=== PATIENT | male | born 1950 | race Hispanic/Latino ===

== ENCOUNTER → 2018-10-18 | Outpatient (CLI) | payer MEDICARE ==
[~2018-10-18] MED LIST: AEC81 PO; ATOR40TA71 PO; CLOP75TA14 PO; LISI-613 PO; METF750T PO; METO50TA18 PO
== END | disposition home or self-care (01) ==
LOC: SHCH 07:49
PROVIDERS: ATTEND Internal Medicine Cardiovascular Disease
DX: R94.31 Abnormal electrocardiogram [ECG] [EKG] (principal)
CPT/HCPCS: 93306

== ENCOUNTER → 2018-10-20 | Outpatient (CLI) | payer MEDICARE ==
[~2018-10-20] MED LIST changes: +REGADENOSON 0.4 MG/5 ML PF SYG IVP SCH
== END | disposition home or self-care (01) ==
LOC: SHCH 07:42
PROVIDERS: ATTEND Internal Medicine Cardiovascular Disease
DX: R94.31 Abnormal electrocardiogram [ECG] [EKG] (principal); R07.89 Other chest pain
CPT/HCPCS: 78452; 93017; 96374; A9500 ×2; J2785 ×2

== ENCOUNTER 2018-10-28 16:08 | Observation (INO) | payer MEDICARE ==
[~2018-10-28] VITALS: Ht 165.1 cm; Wt 90.3 kg
[~2018-10-28 16:08] MED LIST changes: -REGADENOSON 0.4 MG/5 ML PF SYG IVP SCH
[2018-10-28 16:37] LABS: BASOPHILS % (AUTO) 1.1 % (0.0-5.0); LYMPHOCYTES % (AUTO) 20.1 % (21.0-51.0); MEAN CORPUSCULAR HEMOGLOBIN 30.3 pg (27.0-33.0); MEAN CORPUSCULAR HGB CONC 33.2 g/dL (32.0-36.0); MEAN CORPUSCULAR VOLUME 91.2 fL (79-99); MONOCYTES % (AUTO) 9.4 % (3.0-13.0); NEUTROPHILS % (AUTO) 66.4 % (40.0-77.0); NUCLEATED RED BLOOD CELLS 0.1 % (0.0-0.19); PLATELET COUNT (AUTO) 222 K/uL (130-400); RED BLOOD CELL COUNT(AUTO) 5.04 MIL/uL (4.50-6.20); RED CELL DISTRIBUTION WIDTH 13.7 % (11.0-15.5); WHITE BLOOD COUNT (AUTO) 6.7 K/uL (4.8-10.8)
[2018-10-28 16:48] LABS: CREATININE 1.5 mg/dL (0.5-1.5); POTASSIUM 3.6 mmol/L (3.5-5.1)
[2018-10-28 16:54] LABS: ALBUMIN 3.9 g/dL (3.5-5.0); BILIRUBIN,TOTAL 0.5 mg/dL (0.2-1.0); TOTAL PROTEIN, SERUM 7.3 g/dL (6.0-8.3)
[2018-10-28 16:59] LABS: CREATINE KINASE, TOTAL 164 U/L (21-232); MYOGLOBIN 53 ng/mL (10-92); TROPONIN I < 0.04 ng/mL (0.00-0.06)
[2018-10-28 17:28] LABS: APPEARANCE,URINE Clear (CLEAR); BILIRUBIN,URINE Negative (NEGATIVE); COLOR,URINE Yellow (YELLOW); GLUCOSE, URINE (UA) Negative (NEGATIVE); KETONES,URINE Negative (NEGATIVE); LEUKOCYTE ESTERASE ,URINE Negative (NEGATIVE); NITRATE,URINE Negative (NEGATIVE); OCCULT BLOOD,URINE Trace (NEGATIVE); PH,URINE 7.5 (5.0-8.0); PROTEIN,URINE Negative (NEGATIVE); UROBILINOGEN,URINE 0.2 mg/dL (0.2-1.0)
[2018-10-28 18:02] LABS: BACTERIA,URINE Rare /HPF (None Seen); RBC,URINE 0-1 /HPF (0-1); SQUAMOUS EPITHELIAL CELL,UR 0-2 /HPF (0-2); WBC,URINE None Seen /HPF (0-1)
[2018-10-28] MEDS ORDERED: ASPIRIN 325 MG TABLET ONE (18:05)
[2018-10-28] MEDS ORDERED: NITROGLYCERIN 0.4 MG SL TAB SL ONE (18:05)
--- NOTE | 2018-10-28 20:00 | NUR ---
PM Assessment Bedside report received from Jabier SIMMS. Plan of care discussed with patient. Patient currently in no apparent distress, resting comfortably. Physical assessment within normal limits. will continue to monitor. Addendum: 10/28/18 at 2031 by ALMA DELIA CLEMENS RN incorrect patient charted. note.
--- NOTE | 2018-10-28 21:20 | NUR ---
Report received from ER nurse MENDEZ Duarte report given. Patient arrived to unit at 2136 in no apparent distress. currently chest pain free, in no apparent distress. plan of care discussed with nurse transferring patient and patient. will continue to monitor patient closely. As per Report patient in Observation. No Cardiology consult as per report.
--- NOTE | 2018-10-28 21:50 | NUR ---
Dr. Mcgarry called Dr. Mcgarry called about admission and updated on patient. Orders received by telephone read back and entered into system
[2018-10-28 22:02] VITALS: BP 156/98
[2018-10-28 23:02] LABS: TROPONIN I 0.05 ng/mL (0.00-0.06)
[2018-10-29] VITALS: BP 160/85
[2018-10-29 04:00] VITALS: BP 137/76
[2018-10-29 05:44] LABS: TROPONIN I 0.07 ng/mL (0.00-0.06)
--- NOTE | 2018-10-29 07:00 | NUR ---
ENCOUNTERED PATIENT ON BED WITH NO C/O CHEST PAIN NOR SHORTNESS OF BREATH. HE IS ON 2L O2 PER NASAL CANNULA. DR. MARC HAS NOT BEEN BY. NO ORDERS FOR CARDIO CONSULT. PATIENT'S WILL BRING HIS HOME MEDICATIONS FOR VERIFICATION. NO PENDING TEST.
[2018-10-29 07:21] VITALS: BP 152/91
--- NOTE | 2018-10-29 07:30 | NUR ---
FULL SYSTEMIC ASSESSMENT DONE. CALL LIGHT AT BEDSIDE. INSTRUCTED TO CALL FOR ASSISTANCE AND PATIENT VERBALIZED UNDERSTANDING.
--- NOTE | 2018-10-29 07:44 | NUR ---
MD UPDATE Spoke to by phone regarding pt's status. MD aware of CE results. Per MD, will anticipate pt discharge today after round. Pt updated by primary nurse. No additional studies or consults ordered by MD.
--- NOTE | 2018-10-29 07:50 | NUR ---
TELE UPDATE: SINUS RHYTHM 98
[2018-10-29] MEDS ORDERED: PNEUMOCOCCAL VACCINE POLYVALENT 0.5 ML/VIAL [PPV] IM ONE (09:00)
[2018-10-29 11:17] VITALS: BP 133/79
[2018-10-29 16:12] VITALS: BP 126/77
--- NOTE | 2018-10-29 18:29 | NUR ---
DISCHARGE INSTRUCTIONS/INFORMATION GIVEN TO PATIENT, AND DAUGHTER. PATIENT WILL HAVE TO F/U WITH DR. PLATT IN 1-2 WEEKS FOR A POSSIBLE OUTPATIENT STRESS TEST AND WITH HIS PCP DR. TINSLEY IN 1 WEEK FOR TRANSITION CARE. TEACH BACK METHOD USED TO EDUCATE PATIENT ON MEDICATIONS, CHEST PAIN, S/S TO WATCH FOR, WHEN TO CALL THE DOCTOR, DIET, AND F/U APPOINTMENTS. ALL VERBALIZED UNDERSTANDING. PIV REMOVED. TIP INTACT. TELE REMOVED AND RETURNED. ALL BELONGINGS WERE PACKED AND TAKEN HOME. PATIENT WAS WHEELED SAFELY TO HIS PRIVATE VEHICLE BY ASHLEY BOYLE.
[2018-10-29] MEDS ORDERED: ATORVASTATIN CALCIUM 40 MG TABLET PO SCH (21:00)
[2018-10-29] MEDS ORDERED: LISINOPRIL 20 MG TABLET PO SCH (21:00)
[2018-10-29] MEDS ORDERED: METOPROLOL TARTRATE 50 MG TAB PO SCH (21:00)
[2018-10-30] MEDS ORDERED: ASPIRIN 81 MG EC TAB PO SCH (09:00)
[2018-10-30] MEDS ORDERED: CLOPIDOGREL BISULFATE 75 MG TAB PO SCH (09:00)
== END 2018-10-29 18:35 | disposition home or self-care (01) ==
LOC: EDH 16:08 → EDHIP 17:59 → 2AH 21:42
PROVIDERS: ADMIT Internal Medicine; ATTEND Internal Medicine
DX: R07.89 Other chest pain (principal); I25.10 Atherosclerotic heart disease of native coronary artery without angina pectoris
CPT/HCPCS: 36415 ×2; 71045; 80053; 81001; 82550 ×3; 83874 ×3; 84484 ×3; 85025; 93005 ×3; 99291; G0378 ×25

== ENCOUNTER 2020-07-24 16:36 | Inpatient (IN) | payer MEDICARE ==
[~2020-07-24] VITALS: Ht 160 cm; Wt 94.5 kg
[~2020-07-24 16:36] MED LIST changes: -METF750T PO
[2020-07-24 16:56] LABS: BASOPHILS % (AUTO) 0.9 % (0.0-5.0); EOSINOPHILS % (AUTO) 1.8 % (0.0-8.0); HEMATOCRIT 44.5 % (42-54); LYMPHOCYTES % (AUTO) 23.8 % (21.0-51.0); MEAN CORPUSCULAR HEMOGLOBIN 30.9 pg (27.0-33.0); MEAN CORPUSCULAR HGB CONC 34.4 g/dL (32.0-36.0); MEAN CORPUSCULAR VOLUME 89.9 fL (79-99); MONOCYTES % (AUTO) 7.6 % (3.0-13.0); NEUTROPHILS % (AUTO) 65.7 % (40.0-77.0); PLATELET COUNT (AUTO) 246 K/uL (130-400); RED BLOOD CELL COUNT(AUTO) 4.95 MIL/uL (4.50-6.20); RED CELL DISTRIBUTION WIDTH 13.2 % (11.0-15.5); WHITE BLOOD COUNT (AUTO) 8.2 K/uL (4.8-10.8)
[2020-07-24 17:07] LABS: CREATININE 1.4 mg/dL (0.5-1.5); POTASSIUM 3.2 mmol/L (3.5-5.1)
[2020-07-24 17:14] LABS: ALBUMIN 4.3 g/dL (3.5-5.0); BILIRUBIN,TOTAL 0.5 mg/dL (0.2-1.0); INR 0.95 (0.85-1.15); PARTIAL THROMBOPLASTIN TIME 24.8 SEC (26.3-35.5); PROTHROMBIN TIME 10.3 SEC (9.6-11.6); TOTAL PROTEIN, SERUM 7.6 g/dL (6.0-8.3)
[2020-07-24] MEDS ORDERED: POTASSIUM BICARB/CIT AC 25 MEQ TABLET.EFF ONE (18:32)
[2020-07-24] MEDS ORDERED: SODIUM CHLORIDE 0.9% 1000ML 0 ML IV ONE (18:35)
[2020-07-24] MEDS ORDERED: NITROGLYCERIN 1GM/1 INCH PACKET TD ONE (21:32)
[2020-07-24] MEDS ORDERED: ATORVASTATIN CALCIUM 40 MG TABLET ONE (21:53)
[2020-07-24] MEDS ORDERED: METOPROLOL TARTRATE 25 MG TAB ONE (21:54)
[2020-07-24] MEDS ORDERED: ENOXAPARIN SODIUM 40 MG/0.4 ML SYRINGE SQ ONE (21:54)
[2020-07-24] MEDS ORDERED: MORPHINE SULFATE 2 MG/ML 1ML SYG IVP PRN (22:00)
[2020-07-24] MEDS ORDERED: ONDANSETRON HCL 4 MG/2 ML VIAL IVP PRN (22:00)
[2020-07-24] MEDS ORDERED: ACETAMINOPHEN 325 MG TAB PO PRN (22:00)
[2020-07-24 22:50] VITALS: BP 146/67
[2020-07-25 00:23] VITALS: BP 124/72
[2020-07-25 03:57] VITALS: BP 127/77
[2020-07-25 04:14] LABS: HEMATOCRIT 46.6 % (42-54); MEAN CORPUSCULAR HEMOGLOBIN 30.3 pg (27.0-33.0); MEAN CORPUSCULAR HGB CONC 33.5 g/dL (32.0-36.0); MEAN CORPUSCULAR VOLUME 90.5 fL (79-99); RED BLOOD CELL COUNT(AUTO) 5.15 MIL/uL (4.50-6.20); RED CELL DISTRIBUTION WIDTH 13.3 % (11.0-15.5); WHITE BLOOD COUNT (AUTO) 7.9 K/uL (4.8-10.8)
[2020-07-25 04:15] LABS: HEMOGLOBIN A1C 6.2 % (4.0-6.0)
[2020-07-25 04:28] LABS: INR 0.97 (0.85-1.15); PARTIAL THROMBOPLASTIN TIME 27.5 SEC (26.3-35.5); PROTHROMBIN TIME 10.5 SEC (9.6-11.6)
[2020-07-25 04:32] LABS: CREATININE 1.2 mg/dL (0.5-1.5); MAGNESIUM 2.2 mg/dL (1.80-2.40); POTASSIUM 4.4 mmol/L (3.5-5.1)
[2020-07-25] MEDS ORDERED: HEPARIN 25000 UNITS/250 ML D5W 250 ML IV SCH (06:30)
[2020-07-25] MEDS ORDERED: METOPROLOL TARTRATE 25 MG TAB ONE (06:35)
[2020-07-25] MEDS ORDERED: ASPIRIN 81 MG EC TAB ONE (06:37)
[2020-07-25] MEDS: METOPROLOL TARTRATE 25 MG TAB PO SCH ×2 (06:54→21:51)
[2020-07-25] MEDS: ATORVASTATIN CALCIUM 40 MG TABLET PO SCH (06:54)
[2020-07-25] MEDS: SODIUM CHLORIDE 0.9% 1000ML 1,000 ML IV SCH ×2 (06:54→15:55)
[2020-07-25] MEDS: ASPIRIN 81MG TAB.CHEW PO SCH (06:54)
[2020-07-25] MEDS ORDERED: INSULIN R PO SS1 SQ SCH (07:30)
[2020-07-25] MEDS: ENOXAPARIN SODIUM 40 MG/0.4 ML SYRINGE SQ SCH (08:01)
[2020-07-25] MEDS ORDERED: IOHEXOL 350 MG/ML 100ML INFUS..BTL IV ONE (08:02)
[2020-07-25] MEDS ORDERED: NITROGLYCERIN 2 MG/VIAL VIAL IV ONE (08:02)
[2020-07-25] MEDS ORDERED: LIDOCAINE HCL 2% 20ML ONE (08:03)
[2020-07-25] MEDS ORDERED: IOHEXOL-350 50ML VIAL IV ONE (08:03)
[2020-07-25] MEDS ORDERED: HEPARIN SODIUM 1000UNIT/ML 10ML VIAL ONE (08:17)
[2020-07-25] MEDS ORDERED: NICARDIPINE HCL 25 MG/10 ML ML IV ONE (08:17)
[2020-07-25] MEDS ORDERED: MIDAZOLAM HCL 1 MG/ML 2ML VIAL ONE (08:37)
[2020-07-25] MEDS ORDERED: FENTANYL CITRATE PF 50 MCG/1 ML 2ML VIAL ONE (08:38)
[2020-07-25] MEDS ORDERED: IOHEXOL-350 75 ML VIAL IV ONE (08:52)
[2020-07-25] MEDS ORDERED: EPTIFIBATIDE 2 MG/ML 10 ML VIAL IVP ONE ×2 (08:58→09:16)
[2020-07-25] MEDS ORDERED: TICAGRELOR 90 MG TABLET ONE (08:58)
[2020-07-25] MEDS ORDERED: ASPIRIN 81MG TAB.CHEW PO SCH (09:00)
[2020-07-25] MEDS ORDERED: METOPROLOL TARTRATE 25 MG TAB PO SCH (09:00)
[2020-07-25] MEDS ORDERED: DEXTROSE 50%-WATER 50 ML DISP.SYRIN IV PRN (09:45)
[2020-07-25] MEDS ORDERED: GLUCAGON 1MG KIT 1 MG ML IM PRN (09:45)
--- NOTE | 2020-07-25 10:00 | NUR ---
ARRIVAL TO FLOOR FROM INSPECTOR OF WEIGHTS AND MEASURES RECEIVED PATIENT TO ROOM 404, PT IS AAOX3 DENIES CP DENIES SOB DENIES NV. NOTED RIGHT WRIST TR BAND IN PLACE, INFLATED. RIGHT WRIST CATH ACCESS SITE IS VISIBLE AND IS NOT BLEEDING, HEMOSTASIS ACHIEVED WITH TR BAND IN PLACE. ORDERS IN PLACE FOR AIR REMOVAL. PT IS ON IV FLUIDS AND IS ON AN INTEGRILIN GTT ORDERED. TELEMETRY PLACED ON PATIENT. BEDREST IN PROGRESS AND PATIENT VERBALIZES UNDERSTANDING ON COMPLIANCE. AGREES TO NOT USE RIGHT HAND/ARM FOR THE TIME BEING. CALL LIGHT WITHIN REACH.
[2020-07-25] MEDS: EPTIFIBATIDE 75MG/100ML BOTTLE 100 ML IV SCH ×2 (10:41→21:51)
--- NOTE | 2020-07-25 11:00 | NUR ---
RIGHT WRIST REMAINS WITH TR BAND HEMOSTASIS REMAINS TO SITE, INTEGRILIN INFUSING ORDERED.
[2020-07-25] MEDS: INSULIN HUMULIN R 100 UNIT/ML 3ML SQ SCH ×3 (11:30→21:00)
--- NOTE | 2020-07-25 11:45 | NUR ---
2D ECHO AT BEDSIDE
--- NOTE | 2020-07-25 14:00 | NUR ---
TR BAND AIR REMOVAL EVERY 15 MINUTES 2ML AIR REMOVED EVERY 15 MINS SINCE 12PM. TOLERATED WELL. HEMOSTASIS REMAINS, LIGHT DRESSING WITH TEGADERM APPLIED OVER RIGHT RADIAL CATH SITE. INSTRUCTED TO NOT USE RIGHT HAND FOR ANY LIFTING OR GRIPPING THINS TOO TIGHTLY. VERBALIZED UNDERSTANDING, CALL LIGHT WITHIN REACH.
--- NOTE | 2020-07-25 15:00 | NUR ---
DRESSING TO RIGHT WRIST REMAINS CLEAN DRY AND INTACT DENIES PAIN TO SITE. CALL LIGHT WITHIN REACH.
--- NOTE | 2020-07-25 16:00 | NUR ---
STATUS PT IS AAOX3 DENIES CP DENIES SOB. NO COMPLAINTS. HR VIA TELE SR 70S.
--- NOTE | 2020-07-25 16:26 | NUR ---
LILIBETH NOTE/IA UNABLE TO MEET WITH PATIENT, NEXT OF KIN CALLED, JOSE DE LUNA. PER DAUGHTER, PATIENT IS INDEPENDENT WITH ADLS, LIVES WITH SPOUSE, NO USE OF DME OR PROVIDERS AND FEELS SAFE FOR PATIENT TO RETURN HOME ONCE DISCHARGED FROM HOSPITAL. Addendum: 07/25/20 at 1627 by IRISH SHETH RN CM Amended: Links added.
[2020-07-25 16:38] VITALS: BP 147/78
--- NOTE | 2020-07-25 19:56 | NUR ---
stone splitter MD for was paged and informed that patient is on Integrillin drip and will also have Brilinta scheduled for tonight,he said to hold the dose of Brilinta for tonight only.
[2020-07-25] MEDS: TICAGRELOR 90 MG TABLET PO SCH (20:00)
[2020-07-25 20:04] VITALS: BP 132/98
[2020-07-25] MEDS ORDERED: ATORVASTATIN CALCIUM 40 MG TABLET PO SCH (21:00)
[2020-07-26 00:13] VITALS: BP 149/97
--- NOTE | 2020-07-26 04:00 | NUR ---
Integrillin drip turned off at this time.
[2020-07-26 04:26] VITALS: BP 152/90
[2020-07-26 04:30] LABS: HEMATOCRIT 44.9 % (42-54); MEAN CORPUSCULAR HEMOGLOBIN 30.2 pg (27.0-33.0); MEAN CORPUSCULAR HGB CONC 33.2 g/dL (32.0-36.0); MEAN CORPUSCULAR VOLUME 91.1 fL (79-99); RED BLOOD CELL COUNT(AUTO) 4.93 MIL/uL (4.50-6.20); RED CELL DISTRIBUTION WIDTH 13.4 % (11.0-15.5); WHITE BLOOD COUNT (AUTO) 8.2 K/uL (4.8-10.8)
[2020-07-26 04:47] LABS: CREATININE 1.1 mg/dL (0.5-1.5); MAGNESIUM 2.3 mg/dL (1.80-2.40); POTASSIUM 3.7 mmol/L (3.5-5.1)
[2020-07-26] MEDS: INSULIN HUMULIN R 100 UNIT/ML 3ML SQ SCH ×4 (06:06→20:40)
[2020-07-26] MEDS: ATORVASTATIN CALCIUM 40 MG TABLET PO SCH (08:18)
[2020-07-26] MEDS: TICAGRELOR 90 MG TABLET PO SCH (08:18)
[2020-07-26] MEDS: ASPIRIN 81MG TAB.CHEW PO SCH (08:19)
[2020-07-26] MEDS: METOPROLOL TARTRATE 25 MG TAB PO SCH ×2 (08:19→20:42)
[2020-07-26] MEDS: ENOXAPARIN SODIUM 40 MG/0.4 ML SYRINGE SQ SCH ×2 (08:20→09:23)
[2020-07-26 08:29] VITALS: BP 120/78
[2020-07-26] MEDS ORDERED: ENOXAPARIN SODIUM 1 MG/KG SQ SCH (10:00)
[2020-07-26] MEDS: ENOXAPARIN SODIUM 100 MG/1 ML SQ SCH ×2 (10:12→20:43)
--- NOTE | 2020-07-26 10:23 | NUR ---
CALL RECEIVED FROM PT.'S SPOUSE, LUKAS DE LUNA. UPDATED ON PT.'S STATUS AND INFORMATION PROVIDED WELL QUESTIONS ANSWERED, WITH PT.'S APPROVAL; SPOUSE VERBALIZED UNDERSTANDING.
[2020-07-26 11:45] VITALS: BP 123/83
--- NOTE | 2020-07-26 16:32 | NUR ---
CM NOTE PLEASE SEE NURSING COMMUNICATOR ORDER BY DR. CARNEY ON 07/26/2020 AT 1234 IN REGARDS TO CASE MANAGEMENT PROMPT ON MEDICAL COVERAGE FOR [employer] AND [employer].
[2020-07-26 16:51] VITALS: BP 145/89
[2020-07-26 20:00] VITALS: BP 143/90
[2020-07-27] VITALS: BP 164/90
[2020-07-27 04:00] VITALS: BP 145/84
[2020-07-27] MEDS: INSULIN HUMULIN R 100 UNIT/ML 3ML SQ SCH ×2 (05:27→11:19)
[2020-07-27 08:00] VITALS: BP 148/86
--- NOTE | 2020-07-27 08:00 | NUR ---
AM ASSESSMENT PT SITTING IN BED, WATCHING TV. A/O X 3. NO SOB. NO DISTRESS NOTED. DENIES CHEST PAIN OR DISCOMFORT. DENIES PALPITATIONS. DENIES PUNCTURE SITE PAIN. TELE: SR. RT WRIST PUNCTURE SITE DSG DRY & INTACT. NO BLEEDING, NO HEMATOMA NOTED. (+) CAPILLARY REFILL. STRONG RT RADIAL PULSE. DENIES N/V AND/OR DIARRHEA. UP AD SRAVANI. INSTRUCTED TO CALL FOR ASSISTANCE. CALL RIOS W/IN REACH.
[2020-07-27] MEDS: ENOXAPARIN SODIUM 100 MG/1 ML SQ SCH ×2 (08:06→11:19)
[2020-07-27] MEDS: ASPIRIN 81MG TAB.CHEW PO SCH (08:06)
[2020-07-27] MEDS: ATORVASTATIN CALCIUM 40 MG TABLET PO SCH (08:06)
[2020-07-27] MEDS: METOPROLOL TARTRATE 25 MG TAB PO SCH (08:06)
[2020-07-27] MEDS ORDERED: CLOPIDOGREL BISULFATE 300 MG TAB PO SCH (09:00)
[2020-07-27 11:00] VITALS: BP 134/90
--- NOTE | 2020-07-27 12:40 | NUR ---
DISCHARGE TELE ROSALIE REMOVED @ THIS TIME.
[2020-07-27] MEDS ORDERED: APIXABAN 2.5 MG TABLET PO ONE (12:51)
[2020-07-27] MEDS ORDERED: RIVAROXABAN 2.5 MG TABLET PO SCH ×2 (13:15→21:00)
--- NOTE | 2020-07-27 13:50 | NUR ---
DISCHARGE PT'S SPOUSE HERE TO TAKE PT HOME. PT TAKEN TO PRIVATE VEHICLE VIA WC BY Ilene ESPINOZA RN. NO DISTRESS NOTED.
== END 2020-07-27 13:50 | disposition home or self-care (01) | DRG 282 ==
LOC: EDH 16:36 → EDHIP 21:34 → 4AH 22:56
PROVIDERS: ADMIT Internal Medicine Infectious Disease; ATTEND Internal Medicine Infectious Disease
PROC: 4A023N7 Measurement of Cardiac Sampling and Pressure, Left Heart, Percutaneous Approach (ICD-10-PCS; principal; 2020-07-25)
PROC: B2111ZZ Fluoroscopy of Multiple Coronary Arteries using Low Osmolar Contrast (ICD-10-PCS; 2020-07-25)
DX: T82.855A Stenosis of coronary artery stent, initial encounter (principal); I21.4 Non-ST elevation (NSTEMI) myocardial infarction; I10 Essential (primary) hypertension; E78.5 Hyperlipidemia, unspecified; I25.10 Atherosclerotic heart disease of native coronary artery without angina pectoris; E11.9 Type 2 diabetes mellitus without complications; E87.6 Hypokalemia; E66.01 Morbid (severe) obesity due to excess calories; Z68.36 Body mass index [BMI] 36.0-36.9, adult; Z79.899 Other long term (current) drug therapy; I25.2 Old myocardial infarction; Z83.3 Family history of diabetes mellitus; Z82.49 Family history of ischemic heart disease and other diseases of the circulatory system; Y83.8 Other surgical procedures as the cause of abnormal reaction of the patient, or of later complication, without mention of misadventure at the time of the procedure; Y92.89 Other specified places as the place of occurrence of the external cause
CPT/HCPCS: 36415; 71045; 80048; 80053; 82550; 82948; 83036; 83735; 84484; 85025; 85027; 85610; 85730; 93005; 93306; 93356; 93454; 99156; 99157; C1769; G0378; J1327; J1644; J1650; J2250; J3010; J3490; J7030; Q9967

== ENCOUNTER → 2020-08-27 | Outpatient (CLI) | payer MEDICARE | END | disposition home or self-care (01) | LOC: SHCH 07:59 | PROVIDERS: ATTEND Internal Medicine | DX: I22.2 Subsequent non-ST elevation (NSTEMI) myocardial infarction (principal) | CPT/HCPCS: 93306; 93356 ==

== ENCOUNTER 2020-09-18 15:56 | Inpatient (IN) | payer MEDICARE ==
[~2020-09-18] VITALS: Ht 167.6 cm; Wt 85.3 kg
[2020-09-18] MEDS ORDERED: ASPIRIN 325 MG TABLET ONE (16:07)
[2020-09-18] MEDS ORDERED: NITROGLYCERIN 0.4 MG SL TAB SL ONE (16:07)
[2020-09-18] MEDS ORDERED: NITROGLYCERIN 1GM/1 INCH PACKET TD ONE (16:07)
[2020-09-18 16:12] LABS: BASOPHILS % (AUTO) 0.9 % (0.0-5.0); EOSINOPHILS % (AUTO) 2.2 % (0.0-8.0); HEMATOCRIT 45.5 % (42-54); LYMPHOCYTES % (AUTO) 38.4 % (21.0-51.0); MEAN CORPUSCULAR HEMOGLOBIN 30.6 pg (27.0-33.0); MEAN CORPUSCULAR HGB CONC 33.8 g/dL (32.0-36.0); MEAN CORPUSCULAR VOLUME 90.5 fL (79-99); MONOCYTES % (AUTO) 9.3 % (3.0-13.0); PLATELET COUNT (AUTO) 309 K/uL (130-400); RED BLOOD CELL COUNT(AUTO) 5.03 MIL/uL (4.50-6.20); RED CELL DISTRIBUTION WIDTH 13.2 % (11.0-15.5); WHITE BLOOD COUNT (AUTO) 9.4 K/uL (4.8-10.8)
[2020-09-18] MEDS ORDERED: ONDANSETRON HCL 4 MG/2 ML VIAL ONE (16:17)
[2020-09-18] MEDS ORDERED: MORPHINE SULFATE 4 MG/1ML SYG ONE (16:17)
[2020-09-18 16:26] LABS: INR 0.97 (0.85-1.15); PARTIAL THROMBOPLASTIN TIME 24.3 SEC (26.3-35.5); PROTHROMBIN TIME 10.5 SEC (9.6-11.6)
[2020-09-18] MEDS ORDERED: PRASUGREL HCL 10 MG TABLET ONE (16:28)
[2020-09-18] MEDS ORDERED: IOHEXOL-350 50ML VIAL IV ONE (16:30)
[2020-09-18] MEDS ORDERED: ATROPINE SULFATE 0.1 MG/ML 10 ML SYG IVP ONE (16:30)
[2020-09-18] MEDS ORDERED: BIVALIRUDIN 250 MG/VIAL IV ONE (16:30)
[2020-09-18] MEDS ORDERED: HEPARIN SODIUM 1000UNIT/ML 10ML VIAL ONE (16:30)
[2020-09-18] MEDS ORDERED: IOHEXOL 350 MG/ML 100ML INFUS..BTL IV ONE (16:30)
[2020-09-18] MEDS ORDERED: NITROGLYCERIN 2 MG/VIAL VIAL IV ONE (16:30)
[2020-09-18] MEDS ORDERED: MIDAZOLAM HCL 1 MG/ML 2ML VIAL ONE (16:30)
[2020-09-18 16:31] LABS: CREATININE 1.3 mg/dL (0.5-1.5); POTASSIUM 3.5 mmol/L (3.5-5.1)
[2020-09-18] MEDS ORDERED: DOPAMINE HCL 400 MG/D5%-WATER 0 ML IV ONE (16:31)
[2020-09-18] MEDS ORDERED: LIDOCAINE HCL 2% 20ML ONE (16:31)
[2020-09-18 16:35] LABS: ALBUMIN 4.2 g/dL (3.5-5.0); BILIRUBIN,TOTAL 0.6 mg/dL (0.2-1.0); TOTAL PROTEIN, SERUM 7.7 g/dL (6.0-8.3)
[2020-09-18] MEDS ORDERED: LIDOCAINE PF 2% 5ML ABBOJECT ONE (17:03)
[2020-09-18] MEDS ORDERED: EPTIFIBATIDE 2 MG/ML 10 ML VIAL IVP ONE ×2 (17:08→17:14)
[2020-09-18] MEDS ORDERED: FENTANYL CITRATE PF 50 MCG/1 ML 2ML VIAL ONE (17:39)
[2020-09-18] MEDS ORDERED: ONDANSETRON HCL 4 MG/2 ML VIAL IVP PRN (18:00)
[2020-09-18] MEDS ORDERED: ACETAMINOPHEN 325 MG TAB PO PRN (18:00)
[2020-09-18] MEDS ORDERED: MORPHINE SULFATE 2 MG/ML 1ML SYG IVP PRN (18:00)
[2020-09-18 18:34] VITALS: BP 133/76
[2020-09-18 18:45] VITALS: BP 128/79
[2020-09-18 20:00] VITALS: BP 128/79
[2020-09-18 21:00] VITALS: BP 124/77
[2020-09-18] MEDS: METOPROLOL TARTRATE 25 MG TAB PO SCH (21:32)
[2020-09-18] MEDS: ATORVASTATIN CALCIUM 40 MG TABLET PO SCH (21:33)
[2020-09-18 22:00] VITALS: BP 110/68
[2020-09-18 23:00] VITALS: BP 113/71
[2020-09-19] VITALS (16 sets, daily range): BP systolic 115–152; BP diastolic 75–97
[2020-09-19 03:40] LABS: MEAN CORPUSCULAR HEMOGLOBIN 30.8 pg (27.0-33.0); MEAN CORPUSCULAR HGB CONC 33.9 g/dL (32.0-36.0); MEAN CORPUSCULAR VOLUME 90.9 fL (79-99); RED BLOOD CELL COUNT(AUTO) 4.51 MIL/uL (4.50-6.20); RED CELL DISTRIBUTION WIDTH 13.2 % (11.0-15.5); WHITE BLOOD COUNT (AUTO) 10.8 K/uL (4.8-10.8)
[2020-09-19 04:05] LABS: CREATININE 1.1 mg/dL (0.5-1.5); POTASSIUM 4.1 mmol/L (3.5-5.1)
--- NOTE | 2020-09-19 07:30 | NUR ---
ASSESSMENT Resting comfortably in bed. Denies chest pain, pressure or tightness. Denies SOB or palpitations. SR on tele - fair apical heart tones. Skin is warm, dry. Abd soft - normoactive bowel sounds. Right groin drsg is clean, dry. No evidence of bleeding/oozing or hematoma - tenderness with palpation. BLE's warm to touch. Pedal pulses palpable. Placed on room air. Assessment completed/recorded. Assisted OOB to chair. Call light, needed items placed within reach. Pt instructed to call for assistance as needed - voiced understanding.
[2020-09-19] MEDS: PRASUGREL HCL 10 MG TABLET PO SCH (08:39)
[2020-09-19] MEDS: METOPROLOL TARTRATE 25 MG TAB PO SCH ×2 (08:40→20:41)
[2020-09-19] MEDS ORDERED: ASPIRIN 325MG EC TAB 325 MG TABLET.DR PO SCH (09:00)
--- NOTE | 2020-09-19 10:23 | NUR ---
GI CONSULT Consult information phoned in to - spoke to Quiana - needed information regarding consult provided.
--- NOTE | 2020-09-19 10:45 | NUR ---
MD ROUNDS in to see pt - updated. Pt assessed by MD. Plan of care explained to pt in Cypriot - translation by Tammy Valdovinos RN. Pt voiced understanding of information explained.
--- NOTE | 2020-09-19 11:59 | NUR ---
DC PLAN VISITED WITH PATIENT. PATIENT LIVES WITH SPOUSE. INDEPENDENT ABLE TO PERFORM ADL'S. PATIENT SAID HE APPLIED FOR PROVIDER SERVICES DOES NOT KNOW IF APPROVED. PATIENT HAS NO SERVICES OR DME'S. FEELS SAFE TO RETURN HOME. Addendum: 09/19/20 at 1201 by JUAN CARLOS WANG RN CM Amended: Links added.
--- NOTE | 2020-09-19 12:00 | NUR ---
GI Spoke to by phone regarding consult. Per MD, will schedule diagnostic exam for tomorrow.
--- NOTE | 2020-09-19 13:55 | NUR ---
CHART CHECK COMPLETED. Pt IS A 70 Y.O. MALE ADMITTED SECONDARY TO [facility]. Pt HAS A PAST MEDICAL HISTORY IS SIGNIFICANT FOR HYPERTENSION, DIABETES MELLITUS, DYSLIPIDEMIA, MULTIPLE EPISODES OF MYOCARDIAL INFARCTION, RECENT GASTROINTESTINAL BLEED. PAST SURGICAL HISTORY SIGNIFICANT FOR CARDIAC CATHETERIZATION, PERCUTANEOUS TRANSLUMINAL CORONARY ANGIOPLASTY. Pt CURRENTLY ON CLEAR LIQUID DIET. PLEASE REQUEST FORMAL SKILLED SPEECH/SWALLOW EVALUATION IF Pt PRESENTS WITH +S/S OF ASPIRATION AT MEAL TIMES SUCH COUGHING, WET VOCAL QUALITY, OR THROAT CLEAR. Addendum: 09/19/20 at 1356 by ELIZABETH VALLEJO, [facility] Amended: Links added.
--- NOTE | 2020-09-19 16:00 | NUR ---
ASSESSMENT No acute changes in overall assessment. No complaints voiced by pt. Needed items within reach.
[2020-09-19] MEDS ORDERED: PEG 3350/NA SULF,BICARB,CL/KCL 4000 ML SOLN PO SCH (17:00)
[2020-09-19] MEDS: ATORVASTATIN CALCIUM 40 MG TABLET PO SCH (20:41)
--- NOTE | 2020-09-19 21:40 | NUR ---
Resumed Patient care Patient received at this time from room 223, patient ambulating in room currently denies having any pain or discomfort. Noted to have started reilly, informed patient that he is to be NPO after midnight for procedure in am.
[2020-09-20] VITALS (12 sets, daily range): BP systolic 89–162; BP diastolic 49–94
[2020-09-20 03:47] LABS: BASOPHILS % (AUTO) 0.5 % (0.0-5.0); EOSINOPHILS % (AUTO) 0.9 % (0.0-8.0); HEMATOCRIT 40.4 % (42-54); LYMPHOCYTES % (AUTO) 19.1 % (21.0-51.0); MEAN CORPUSCULAR HEMOGLOBIN 30.5 pg (27.0-33.0); MEAN CORPUSCULAR HGB CONC 33.2 g/dL (32.0-36.0); MEAN CORPUSCULAR VOLUME 91.8 fL (79-99); MONOCYTES % (AUTO) 9.2 % (3.0-13.0); NEUTROPHILS % (AUTO) 70.1 % (40.0-77.0); PLATELET COUNT (AUTO) 257 K/uL (130-400); RED CELL DISTRIBUTION WIDTH 13.3 % (11.0-15.5); WHITE BLOOD COUNT (AUTO) 8.9 K/uL (4.8-10.8)
[2020-09-20 03:57] LABS: INR 0.99 (0.85-1.15); PROTHROMBIN TIME 10.7 SEC (9.6-11.6)
[2020-09-20 03:59] LABS: CREATININE 1.1 mg/dL (0.5-1.5); MAGNESIUM 2.1 mg/dL (1.80-2.40)
[2020-09-20] MEDS ORDERED: ASPIRIN 81MG TAB.CHEW ONE (05:30)
[2020-09-20] MEDS: PRASUGREL HCL 10 MG TABLET PO SCH (05:31)
[2020-09-20] MEDS ORDERED: PROPOFOL 10 MG/ML 20ML VIAL IV ONE (07:21)
[2020-09-20] MEDS ORDERED: LIDOCAINE HCL-MPF 2% 5ML VIAL ONE (07:21)
[2020-09-20] MEDS ORDERED: ASPIRIN 81MG TAB.CHEW PO SCH (09:00)
[2020-09-20] MEDS: METOPROLOL TARTRATE 25 MG TAB PO SCH (10:24)
[2020-09-20] MEDS ORDERED: PHARMACY COMMUNICATION MISC SCH (10:45)
[2020-09-20] MEDS ORDERED: HEMORRHOIDAL OINTMENT 57 GM CREAM.GM. RC SCH (11:15)
[2020-09-20] MEDS ORDERED: PANT40TA55 PO (13:55)
[2020-09-20] MEDS ORDERED: HYDR30CR79 RC (13:57)
--- NOTE | 2020-09-20 17:12 | NUR ---
PT AND SPOUSE STATE UNDERSTANDING OF DISCHARGE INSTRUCTIONS, IV REMOVED W/O DIFFICULTY OR COMPLICATION, PT DISMISSED BY W/C IN GOOD CONDITION ACCOMPANIED BY STAFF AND SPOUSE W/O RESP DIFFICULTY OR PAIN
[2020-09-20] MEDS ORDERED: ATORVASTATIN CALCIUM 40 MG TABLET PO SCH (21:00)
[2020-09-20] MEDS ORDERED: METOPROLOL TARTRATE 50 MG TAB PO SCH (21:00)
[2020-09-20] MEDS ORDERED: HYDROCORTISONE 30 GM RC SCH (21:00)
[2020-09-20] MEDS ORDERED: LISINOPRIL 20 MG TABLET PO SCH (21:00)
[2020-09-21] MEDS ORDERED: ASPIRIN 81 MG EC TAB PO SCH (09:00)
[2020-09-21] MEDS ORDERED: PANTOPRAZOLE SODIUM 40 MG TABLET.DR PO SCH ×2 (09:00)
== END 2020-09-20 17:56 | disposition home or self-care (01) | DRG 250 ==
LOC: EDH 15:56 → EDHIP 16:30 → 2DH 18:25 → 4AH 09-19 21:26
PROVIDERS: ADMIT Internal Medicine Infectious Disease; ATTEND Internal Medicine Infectious Disease
PROC: 02703ZZ Dilation of Coronary Artery, One Artery, Percutaneous Approach (ICD-10-PCS; principal; 2020-09-18)
PROC: 4A023N8 Measurement of Cardiac Sampling and Pressure, Bilateral, Percutaneous Approach (ICD-10-PCS; 2020-09-18)
PROC: B2111ZZ Fluoroscopy of Multiple Coronary Arteries using Low Osmolar Contrast (ICD-10-PCS; 2020-09-18)
PROC: B2151ZZ Fluoroscopy of Left Heart using Low Osmolar Contrast (ICD-10-PCS; 2020-09-18)
PROC: B41F1ZZ Fluoroscopy of Right Lower Extremity Arteries using Low Osmolar Contrast (ICD-10-PCS; 2020-09-18)
PROC: 0DB68ZX Excision of Stomach, Via Natural or Artificial Opening Endoscopic, Diagnostic (ICD-10-PCS; 2020-09-20)
PROC: 0DJD8ZZ Inspection of Lower Intestinal Tract, Via Natural or Artificial Opening Endoscopic (ICD-10-PCS; 2020-09-20)
DX: T82.855A Stenosis of coronary artery stent, initial encounter (principal); I21.09 ST elevation (STEMI) myocardial infarction involving other coronary artery of anterior wall; E11.9 Type 2 diabetes mellitus without complications; K44.9 Diaphragmatic hernia without obstruction or gangrene; K64.4 Residual hemorrhoidal skin tags; D64.9 Anemia, unspecified; K64.2 Third degree hemorrhoids; I11.0 Hypertensive heart disease with heart failure; I25.118 Atherosclerotic heart disease of native coronary artery with other forms of angina pectoris; E78.5 Hyperlipidemia, unspecified; Y83.8 Other surgical procedures as the cause of abnormal reaction of the patient, or of later complication, without mention of misadventure at the time of the procedure; Z79.899 Other long term (current) drug therapy; Z83.3 Family history of diabetes mellitus; Z87.891 Personal history of nicotine dependence; I25.2 Old myocardial infarction; Z79.01 Long term (current) use of anticoagulants; Z79.84 Long term (current) use of oral hypoglycemic drugs; Z79.02 Long term (current) use of antithrombotics/antiplatelets; Y92.89 Other specified places as the place of occurrence of the external cause
CPT/HCPCS: 36415; 43239; 45378; 71045; 80048; 80053; 80061; 82550; 83735; 84484; 85025; 85027; 85610; 85730; 92920; 93005; 93458; A4606; C1760; C1769; C1887; C1894; G0378; J0461; J0583; J1265; J1327; J1644; J2001; J2250; J2270; J2405; J2704; J3010; J3490; J7030; Q9967